=== PATIENT | female | born 1970 | race Caucasian/White ===

== ENCOUNTER → 2021-03-02 | Day surgery (SDC) | payer BC ==
[~2021-03-02] MED LIST: HYDROCODONE-AP1 EAC6 PO; LEXAPRO 10 MG T10 M2 PO; LIPITOR 20 MG T20 M1 PO; LOSARTAN POTAS100 MG PO; MELOXICAM15 MG PO; METFORMIN HCL500 MG PO; MOBIC7.5 MG PO; PRINIVIL5 MG PO; ROBAXIN 750 MG750 M1 PO; ZOLOFT50 MG PO
[2021-03-02 09:25] LABS: HEMATOCRIT 36.5 % (37.0-47.0); HEMOGLOBIN 11.8 gm/dL (12.0-15.0); MCH 26.1 pg (26.0-34.0); MCHC 32.4 g/dL (28.0-37.0); MCV 80.4 fL (80.0-100.0); MPV 6.5 fl. (7.2-11.1); RBC 4.54 mil/uL (4.20-5.00); WBC 8.7 thou/uL (4.0-11.0)
[2021-03-02 09:35] LABS: CALCIUM 9.1 mg/dL (8.5-10.1); CREATININE 0.7 mg/dL (0.6-1.3); POTASSIUM 4.3 mmol/L (3.5-5.1)
--- NOTE | 2021-03-02 14:35 | EKG ---
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 03/02/21 1435 2 2 Giancarlo Kimball MD, FACC /EPI
--- NOTE | 2021-03-06 11:07 | PATH ---
[address] [address] PATHOLOGY RPT PROCEDURE Name: ADELE DUMONT Flavio Room: [facility]#: [id number] Admission: 03/02/21 Date of : 66 Discharge: Report #: [id number] Path Case #: [id number] [facility] Accession Number: [id number] . 01 Material submitted: . PART A: cecum - CECAL POLYP COLD SNARE PART B: colon - PROXIMAL ASCENDING COLON POLYPS X3 COLD. Modifiers: proximal, X3 PART C: colon - MID ASCENDING COLON POLYP COLD. Modifiers: mid, ascending PART D: colon - PROXIMAL TRANSVERSE COLON POLYP HOT SNARE. Modifiers: proximal, transverse PART E: colon - MID TRANSVERSE COLON POLYP X2 COLD. Modifiers: mid, transverse, X2 PART F: colon - DISTAL TRANSVERSE COLON POLYP HOT. Modifiers: distal, transverse PART G: colon - DESCENDING COLON HOT. Modifiers: descending . 01 Clinical history: . COLONOSCOPY FAMILY HX COLON CANCER . 02 Diagnosis: A. Cecal polyp (cold snare): - Suggestive of tubular adenoma, negative for high-grade dysplasia. . B. Proximal ascending colon polyps x3 (cold): - Multiple tubular adenomas, negative for high-grade dysplasia. . C. Mid ascending colon polyp (cold): - Tubular adenoma, negative for high-grade dysplasia. . D. Proximal transverse colon polyp (hot snare): - Hyperplastic polyp. . E. Mid transverse colon polyp x2 (cold): - Multiple fragments of tubular adenoma(s), negative for high-grade dysplasia. . F. Distal transverse colon polyp (hot): - Hyperplastic polyp. . G. Descending colon (hot): - Hyperplastic polyp. (MARY:yamile; 03/05/2021) S 03/05/2021 1255 Local . 02 Electronically signed: . Charles Gutiérrez MD, [place] [address] PATHOLOGY RPT PROCEDURE Name: ADELE DUMONT Room: [facility]#: [id number] Admission: 03/02/21 Date of : 66 Discharge: Report #: [id number] Path Case #: [id number]- [id number] . 01 Gross description: . A. The specimen is received in formalin, labeled "Adele Dumont cecal polyp". Received is a single segment of pale [place] tissue measuring 0.4 cm in maximum dimensions. The specimen is submitted entirely in cassette A1. . B. The specimen is submitted in formalin, labeled "Lisa, Adele, proximal ascending colon polyps". Received are 3 segments of pale [place] tissue ranging in size from 0.3 to 0.4 cm in maximum dimensions. The specimen is submitted entirely in cassette B1. . C. The specimen is received in formalin, labeled "Lisa, Adele, mid ascending colon polyp". Received is a single segment of dark [place], polypoid tissue measuring 0.5 cm in maximum dimensions. The surgical margin is inked. The specimen is bisected and submitted entirely in cassette C1. . D. The specimen is received in formalin, labeled "Lisa, Adele, proximal transverse colon polyp". Received is a single segment of dark [place], polypoid tissue measuring 0.6 cm in maximum dimensions. The surgical margin is inked. The specimen is bisected and submitted entirely in cassette D1. . E. The specimen is submitted in formalin, labeled "Lisa, Adele, mid transverse colon polyp". Received are 3 segments of pale [place] tissue ranging in size from 0.4 to 0.8 cm in maximum dimensions. The specimen is submitted entirely in cassette E1. . F. The specimen is received in formalin, labeled "Lisa, Adele, distal transverse colon polyp". Received is a single segment of dark [place] tissue measuring 0.5 cm in maximum dimensions. The surgical margin is inked. The specimen is bisected and submitted entirely in cassette F1. . G. The specimen is received in formalin, labeled "Lisa, Adele, descending (polyp). Received is a single segment of light brown, polypoid tissue measuring 0.9 cm in greatest dimensions. The surgical margin is inked. The specimen is bisected and entirely submitted in cassette G1. ([facility]; 03/02/2021) NRI/NRI 03/05/2021 1252 Local . 02 Pathologist provided ICD-10: D12.0, D12.2, K63.5, D12.3 . 02 CPT . 270599, 183102, 566488, 568399, 701441, 830016, 756299 Specimen Comment: A courtesy copy of this report has been sent to [phone] Specimen Comment: Report sent to DR. DORA Specimen Comment: A duplicate report has been generated due to demographic updates. [facility] [address] [facility] [place] [address] PATHOLOGY RPT PROCEDURE Name: ADELE DUMONT Room: [facility].#: [id number] Admission: 03/02/21 Date of : 66 Discharge: Report #: [id number] Path Case #: [id number] Performed at: 01 [facility] [place] [address], [place], [place] [id number] MD Mike Soliz MD Phone: [phone] Performed at: 02 [facility] [address] , [place] [id number] MD Charles Gutiérrez MD Phone: [phone]
== END | disposition home or self-care (01) ==
LOC: M.SUR 02-09 10:26
PROVIDERS: ATTEND Internal Medicine Gastroenterology
DX: Z12.11 Encounter for screening for malignant neoplasm of colon (principal); Z80.0 Family history of malignant neoplasm of digestive organs; D12.0 Benign neoplasm of cecum; D12.2 Benign neoplasm of ascending colon; D12.3 Benign neoplasm of transverse colon; I10 Essential (primary) hypertension; K64.4 Residual hemorrhoidal skin tags; E11.9 Type 2 diabetes mellitus without complications; J45.909 Unspecified asthma, uncomplicated; Z98.890 Other specified postprocedural states; Z79.899 Other long term (current) drug therapy; Z87.891 Personal history of nicotine dependence; Z20.822 Contact with and (suspected) exposure to COVID-19; Z88.8 Allergy status to other drugs, medicaments and biological substances; Z90.49 Acquired absence of other specified parts of digestive tract; Z90.710 Acquired absence of both cervix and uterus